=== PATIENT | female | born 1950 | race Caucasian/White ===

== ENCOUNTER 2020-11-25 12:04 | Emergency (ER) | payer MEDICARE ==
[~2020-11-25] VITALS: Ht 154.9 cm; Wt 83.6 kg
[2020-11-25 14:20] LABS: HEMATOCRIT 39.8 % (37.0-47.0); HEMOGLOBIN 13.2 g/dl (12.0-16.0); IMMATURE GRANULOCYTES 0.2 % (0.0-5.0); MEAN CORPUSCULAR HGB 29.5 pG CALC (26.0-32.0); MEAN CORPUSCULAR HGB CONC 33.2 g/dL CAL (32.0-36.0); NEUT# 8.2 thou/uL (2.00-7.15); RED BLOOD COUNT 4.47 mill/uL (4.20-5.60); RED CELL DISTRI WIDTH 13.3 % (11.5-15.5)
[2020-11-25 14:31] LABS: PROTHROMBIN TIME 10.4 SECONDS (9.0-12.5)
[2020-11-25 14:33] LABS: ALKALINE PHOSPHATASE 88 u/l (38-126); ANION GAP 9 (6-22 (CALC)); BILIRUBIN, TOTAL 0.9 mg/dL (0.0-1.4); BUN 17 mg/dL (8-23); BUN/CREATININE RATIO 30 (12-20 (CALC)); CARBON DIOXIDE 35 mmol/l (22-30); CHLORIDE 100 mmol/l (95-108); CREATININE 0.6 mg/dL (0.5-1.0); GFR > 60 ML/MIN (>=60 (CALC)); GFR FOR AFR.AMER. > 60 ML/MIN (>=60 (CALC)); POTASSIUM 3.8 mmol/l (3.5-5.1); SGOT/AST 33 u/l (9-36); SODIUM 140 mmol/l (137-146); TOTAL PROTEIN 7.6 g/dL (6.3-8.2)
[2020-11-25] MEDS ORDERED: AUGMENTIN500TAB PO (15:34)
[2020-11-25] MEDS ORDERED: BENADRYL25 M1 PO (15:34)
[2020-11-25] MEDS ORDERED: PEPCID20 MG PO (15:34)
[2020-11-25] MEDS ORDERED: MEDDOSEPAK PO (15:34)
[2020-11-25 15:49] VITALS: BP 174/73
== END 2020-11-25 15:53 | disposition home or self-care (01) ==
LOC: ED 12:04
PROVIDERS: Physician Assistant Surgical
DX: J20.9 Acute bronchitis, unspecified (principal); T63.421A Toxic effect of venom of ants, accidental (unintentional), initial encounter; I10 Essential (primary) hypertension; E11.9 Type 2 diabetes mellitus without complications; J45.909 Unspecified asthma, uncomplicated; Z20.822 Contact with and (suspected) exposure to COVID-19

== ENCOUNTER 2021-03-18 00:21 | Emergency (ER) | payer MEDICARE ==
[~2021-03-18] VITALS: Ht 162.6 cm; Wt 81.0 kg
[~2021-03-18 00:21] MED LIST: AUGMENTIN500TAB PO; BENADRYL25 M1 PO; MEDDOSEPAK PO; PEPCID20 MG PO
[2021-03-18 01:47] LABS: HEMOGLOBIN 14.9 g/dl (12.0-16.0); IMMATURE GRANULOCYTES 0.4 % (0.0-5.0); MEAN CELL VOLUME 86.9 fL CALC (80.0-100.0); MEAN CORPUSCULAR HGB 28.8 pG CALC (26.0-32.0); MEAN CORPUSCULAR HGB CONC 33.1 g/dL CAL (32.0-36.0); NEUT# 6.25 thou/uL (2.00-7.15); RED BLOOD COUNT 5.18 mill/uL (4.20-5.60); RED CELL DISTRI WIDTH 12.7 % (11.5-15.5)
[2021-03-18 01:52] LABS: URINE BILIRUBIN - DIPSTICK NEGATIVE (NEGATIVE); URINE BLOOD DIPSTICK TRACE-INTACT (NEGATIVE); URINE COLOR YELLOW; URINE GLUCOSE - DIPSTICK >=1000 mg/dL (NEGATIVE); URINE KETONE NEGATIVE (NEGATIVE); URINE LEUK ESTERASE NEGATIVE (NEGATIVE); URINE PROTEIN - DIPSTICK NEGATIVE (NEG-TRACE); URINE SPECIFIC GRAVITY 1.015; URINE UROBILINOGEN - DIPSTICK 0.2 E.U./dL (0.2)
[2021-03-18 01:54] LABS: URINE NITRITE - DIPSTICK NEGATIVE (Negative)
[2021-03-18 02:06] LABS: ALBUMIN 4.2 g/dL (3.2-5.0); ALKALINE PHOSPHATASE 100 u/l (38-126); AMYLASE 85 u/l (30-110); BILIRUBIN, TOTAL 0.8 mg/dL (0.0-1.4); BUN 26 mg/dL (8-23); BUN/CREATININE RATIO 40 (12-20 (CALC)); CHLORIDE 104 mmol/l (95-108); CREATININE 0.7 mg/dL (0.5-1.0); GFR > 60 ML/MIN (>=60 (CALC)); GFR FOR AFR.AMER. > 60 ML/MIN (>=60 (CALC)); LIPASE 220 u/l (23-300); POTASSIUM 4.4 mmol/l (3.5-5.1); SGOT/AST 21 u/l (9-36); SODIUM 137 mmol/l (137-146); TOTAL PROTEIN 7.9 g/dL (6.3-8.2)
[2021-03-18 02:09] LABS: ANION GAP 11 (6-22 (CALC)); CARBON DIOXIDE 26 mmol/l (22-30)
[2021-03-18 02:18] LABS: MYOGLOBIN 11 ng/mL (0 - 62)
[2021-03-18] MEDS ORDERED: NAPROXEN500 MG PO (04:08)
[2021-03-18 06:11] VITALS: BP 148/65
== END 2021-03-18 06:38 | disposition home or self-care (01) ==
LOC: ED 00:21
PROVIDERS: Emergency Medicine
DX: M79.18 Myalgia, other site (principal); E11.65 Type 2 diabetes mellitus with hyperglycemia; I10 Essential (primary) hypertension; J45.909 Unspecified asthma, uncomplicated; Z20.822 Contact with and (suspected) exposure to COVID-19
CPT/HCPCS: Q9967

== ENCOUNTER 2023-05-01 12:23 | Emergency (ER) | payer MEDICARE ==
[2023-05-01] VITALS (8 sets, daily range): BP systolic 115–177; BP diastolic 56–89
[~2023-05-01] VITALS: Ht 162.6 cm; Wt 78.5 kg
[~2023-05-01 12:23] MED LIST changes: +NAPROXEN500 MG PO
[2023-05-01] MEDS ORDERED: PLAVIX75 MG PO (12:50)
[2023-05-01 13:38] LABS: BASO% 0.5 % (0-3); EOS% 0.1 % (0-8); HEMATOCRIT 44.2 % (37.0-47.0); HEMOGLOBIN 14.8 g/dl (12.0-16.0); IMMATURE GRANULOCYTES 0.1 % (0.0-5.0); LYMPH% 22.4 % (15-41); MEAN CELL VOLUME 88.4 fL CALC (80.0-100.0); MEAN CORPUSCULAR HGB 29.6 pG CALC (26.0-32.0); MEAN CORPUSCULAR HGB CONC 33.5 g/dL CAL (32.0-36.0); MONO% 12.3 % (2-13); NEUT# 4.89 thou/uL (2.00-7.15); NEUT% 64.6 % (42-76); RED CELL DISTRI WIDTH 13.5 % (11.5-15.5)
[2023-05-01 13:47] LABS: ALBUMIN 4.3 g/dL (3.2-5.0); ALKALINE PHOSPHATASE 64 u/l (38-126); ANION GAP 10 (6-22 (CALC)); BUN 22 mg/dL (8-23); BUN/CREATININE RATIO 30 (12-20 (CALC)); CARBON DIOXIDE 30 mmol/l (22-30); CHLORIDE 104 mmol/l (95-108); CREATININE 0.7 mg/dL (0.5-1.0); GFR FOR AFR.AMER. > 60 ML/MIN (>=60 (CALC)); GFR OTHER RACES > 60 ML/MIN (>=60 (CALC)); POTASSIUM 4.2 mmol/l (3.5-5.1); SGOT/AST 35 u/l (9-36); SODIUM 140 mmol/l (137-146); TOTAL PROTEIN 7.4 g/dL (6.3-8.2)
[2023-05-01] MEDS ORDERED: methylPREDNISolone SODIUM SUCC 125 MG/2 ML SDV IM ONE (14:25)
[2023-05-01] MEDS ORDERED: KETOROLAC TROMETHAMINE 30 MG/ML SDV IM ONE (14:35)
[2023-05-01] MEDS ORDERED: BENZONATATE200 MG PO (14:37)
[2023-05-01] MEDS ORDERED: ZYRTEC-D ALLERG1 TAB PO (14:37)
[2023-05-01] MEDS ORDERED: IBUPROFEN600 MG PO (14:37)
[2023-05-01] MEDS ORDERED: MEDDOSEPAK PO (14:37)
== END 2023-05-01 14:56 | disposition home or self-care (01) ==
LOC: ED 12:23
PROVIDERS: Family Medicine
DX: U07.1 COVID-19 (principal); R05.9 Cough, unspecified; R06.7 Sneezing; I10 Essential (primary) hypertension; E11.9 Type 2 diabetes mellitus without complications; J45.909 Unspecified asthma, uncomplicated